=== PATIENT | female | born 1940 | race Caucasian/White ===

== ENCOUNTER 2018-05-02 08:37 | Inpatient (IN) ==
[2018-05-02] MEDS ORDERED: PEPCID IV ONE (09:53)
[2018-05-02] MEDS ORDERED: ZOFRAN IV ONE ×2 (09:53→12:01)
[2018-05-02] MEDS ORDERED: NS 500 ML IV ONE (09:53)
[2018-05-02] MEDS ORDERED: SODIUM CHLORIDE 0.9% INJ ONE (09:53)
[2018-05-02 10:13] LABS: BASO# 0.04 X1000 (0.0-0.2); BASO% 0.4 % (0.0-0.8); EOS# 0.07 X1000 (0.0-0.7); EOS% 0.7 % (0.0-10.0); HEMATOCRIT 37.4 % (37.0-47.0); HEMOGLOBIN 11.5 g/dL (12.0-16.0); LYMPH# 0.96 X1000 (1.2-3.4); LYMPH% 10.2 % (20.5-51.1); MCH 27.2 PG (27-31); MCHC 30.7 g/dL (33-37); MCV 88.4 FL (81-99); MONO# 0.42 X1000 (0.11-0.59); MONO% 4.5 % (1.7-9.3); MPV 9.4 FL (7.4-10.4); NEUT# 7.89 X1000 (1.4-6.5); NEUT% 84.2 % (42.2-75.2); PLT 291 X1000 (130-400); RBC 4.23 XMIL (4.2-5.4); RDW 13.5 % (11.5-14.5); WBC 9.38 X1000 (4.8-10.8)
[2018-05-02 10:33] LABS: ALBUMIN 3.9 g/dL (3.5-5.0); CALCIUM 10.1 mg/dL (8.8-10.2); CREATININE 0.9 mg/dL (0.5-0.9); POTASSIUM 3.1 mmol/L (3.5-5.1); TOTAL BILIRUBIN 0.83 mg/dL (0.20-1.00); TOTAL PROTEIN 7.9 g/dL (6.3-8.3)
--- NOTE | 2018-05-02 11:40 | Diag Imaging Result Doc PS360 ---
CHEST-PORTABLE - 05/02/2018 INDICATION: EPIGASTRIC TENDER COMPARISON: 09/29/2017 FINDINGS: There is worsening pulmonary vascular congestion. There is fine interstitial pulmonary edema with curly B lines. There is stable cardiomegaly. No pneumothorax or pleural effusion. IMPRESSION: Interstitial pulmonary edema. Electronically signed by Austyn Jaimes 05/02/2018 11:37 AM
[2018-05-02] MEDS ORDERED: POTASSIUM CHLORIDE 40 MEQ/SWI 40 MEQ/100 ML IVPB IV ONE (11:41)
--- NOTE | 2018-05-02 11:45 | Diag Imaging Result Doc PS360 ---
CT ABD/PELVIS W/IV CONT ONLY - 05/02/2018 INDICATION: EPIGASTRIC PAIN AND TENDERNESS COMPARISON: 09/02/2016 FINDINGS: There is some hazy interstitial infiltrate throughout the lung bases diffusely compatible with pulmonary edema. No significant pleural effusion. There is cardiomegaly and advanced coronary artery disease. There is also advanced dystrophic calcification of the mitral valve annulus which may indicate mitral valve disease. At the pre-existing small ventral hernia in the anterior pelvic body wall in the midline, there is now a loop of nonobstructed small bowel herniated out into the subcutaneous tissue. This causes moderately high-grade small bowel obstruction proximally, with severe collapse of distal small bowel. There is some stool throughout colon and rectum. No free air or free fluid. There is advanced vascular disease of the aorta and all of its branches including the superior mesenteric artery. 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 Stable cholecystectomy clips. Stable moderate, benign biliary dilation. Other abdominal organs are unchanged. Uterus is absent. Urinary bladder and rectum are normal. There are moderate degenerative changes of the spine. No acute or suspicious bony lesion. IMPRESSION: 1. There is new herniation of a small bowel loop through a small pre-existing ventral hernia at the anterior pelvic body wall in the midline. This causes severe small bowel obstruction. 2. Cardiomegaly. Interstitial pulmonary edema in the lung bases. 3. Severe vascular disease. 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 This exam was performed using automated exposure control, adjustment of mA or kV according to patient size, and/or use of iterative reconstruction technique Electronically signed by Austyn Jaimes 05/02/2018 11:43 AM
[2018-05-02 11:55] LABS: URINE SOURCE CLEAN CATCH
[2018-05-02 11:59] LABS: BILIRUBIN URINE NEGATIVE (NEGATIVE); BLOOD URINE SMALL (NEGATIVE); COLOR YELLOW; GLUCOSE URINE NEGATIVE (NEGATIVE); KETONE URINE NEGATIVE (NEGATIVE); LEUKOCYTES URINE MODERATE (NEGATIVE); NITRITE URINE POSITIVE (NEGATIVE); PH URINE 7.5; PROTEIN URINE 30 mg/dL (NEGATIVE); SP GRAVITY URINE 1.018; TURBIDITY URINE CLEAR (CLEAR); UR EPITHELIAL CELLS <10 /HPF (<10); URINE BACTERIA 4+ /HPF; URINE RBC 20-40 /HPF (<10); URINE WBC 20-40 /HPF (<10); UROBILINOGEN URINE NORMAL (NORMAL)
[2018-05-02] MEDS ORDERED: MORPHINE IV ONE (12:01)
--- NOTE | 2018-05-02 13:34 | Diag Imaging Result Doc PS360 ---
CHEST/ABD TUBE PLACEMENT - 05/02/2018 INDICATION: ng tube placement COMPARISON: 11:29 AM FINDINGS: There has been placement of a nasogastric tube in good position in the gastric fundus. IMPRESSION: Good nasogastric tube placement. Electronically signed by Austyn Jaimes 05/02/2018 1:32 PM
--- NOTE | 2018-05-02 13:35 | EKG Report ---
Test Performed on : 05/02/2018 08:57:16 AM Test Reason : ED. No order in [place] Blood Pressure : / mmHG Vent. Rate : 109 BPM Atrial Rate : 153 BPM P-R Int : 000 ms QRS Dur : 096 ms QT Int : 374 ms P-R-T Axes : 000 088 013 degrees QTc Int : 503 ms Atrial fibrillation. with rapid ventricular response. Nonspecific ST abnormality Abnormal ECG When compared with ECG of 04-OCT-2017 20:17, Previous ECG has undetermined rhythm, needs review Nonspecific T wave abnormality no longer evident in Lateral leads Unconfirmed Result
[2018-05-02] MEDS ORDERED: LOPRESSOR IV ONE (13:55)
[2018-05-02] MEDS ORDERED: ZOFRAN IV PRN (14:22)
[2018-05-02] MEDS ORDERED: MORPHINE IV PRN (14:22)
[2018-05-02] MEDS: NS + KCL 20 MEQ 1,000 ML IV SCH (16:34)
--- NOTE | 2018-05-02 18:39 | Diag Imaging Result Doc PS360 ---
EXAM: ABDOMEN FLAT/UPRIGHT - 05/02/2018 HISTORY: F/U SBO TECHNIQUE: Supine and upright abdomen COMPARISON: 05/02/2018 CT abdomen/pelvis FINDINGS: There is a nasogastric tube is tip at the proximal to mid stomach. There is gaseous distention of multiple small bowel loops. There has been some apparent decrease in small bowel distention compared to the prior CT, but exact comparison between the radiographs and CT is difficult, as several the small bowel loops on the CT were distended with fluid. There is no free air identified. There are multiple surgical clips at the right upper quadrant. IMPRESSION: Some apparent decrease in small bowel distention compared to prior CT. Electronically signed by Kale Andrade 05/02/2018 6:37 PM
--- NOTE | 2018-05-02 18:42 | HISTORY AND PHYSICAL ---
CHIEF COMPLAINT: Vomiting and abdominal pain. HISTORY OF PRESENT ILLNESS: Ms. Coleman is an 78-year-old white female with a history of moderately severe Alzheimer disease, chronic constipation, venous hypertension with a history of bilateral lower extremity ulcerations and chronic atrial fibrillation. She was brought by her family in an ambulance to the emergency room for further evaluation after she began having persistent vomiting at home. She had a good day yesterday and went to bed feeling well. Around 4 a.m. she woke up this morning vomiting. She vomited at least 4 times prior to arrival and several times since. Her vomitus is yellowish-green bile without red blood or coffee grounds. In the emergency room she had a fairly unremarkable chest x-ray and an abdominal- pelvis CT that showed an infraumbilical midline herniation with a loop that was obstructed, herniated into the subcutaneous tissue. Proximally she had dilated, fluid-filled loops of bowel, and distally the collapse of the distal small bowel. There was no free air or fluid. 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 She has been examined by Dr. Franklin, general surgeon, and her hernia seems fairly reduced now, and her NG tube is functioning, and his plan is to observe her with IV fluids and NG suction overnight, and hopefully tomorrow her obstruction will be much improved. PAST MEDICAL HISTORY: As above, significant Alzheimer dementia, chronic atrial fibrillation on Xarelto, and she is extremely hard of hearing. ALLERGIES: She is allergic to sulfa drugs and Augmentin. HOME MEDICATIONS: MiraLAX and Benefiber daily, Cardizem CD 120 mg at bedtime, KCl 8 mEq daily, amlodipine 5 mg daily, Atenolol 25 mg in the morning and 50 mg at bedtime, furosemide 40 mg twice a day, and nitroglycerin sublingual p.r.n. PAST SURGICAL HISTORY: Positive for cholecystectomy years ago and a total abdominal hysterectomy with bilateral salpingo-oophorectomy. REVIEW OF SYSTEMS: GENERAL: No headache, fever, chills, night sweats, or weight loss. HEENT: Hard of hearing with hearing aids. Otherwise, no difficulty swallowing. RESPIRATORY: No shortness of breath, cough or wheezing. CARDIOVASCULAR: No recent chest pain, orthopnea or PND. She does have a history of ischemic heart disease. Her prescription eyeglass maker has been Dr. Lowery in [place]. GI: Other than chronic constipation, no significant history with no previous hepatitis or peptic ulcer disease. : No dysuria or increased frequency of urination. No history of hematuria or renal stones. PHYSICAL EXAMINATION: VITAL SIGNS: Temperature is 98.3, blood pressure 165/85, pulse 105 and irregular, respiratory rate 18, O2 saturation 97% on room air. GENERAL APPEARANCE: Alert, cooperative, [id number] elderly woman. HEENT: Conjunctivae are white. Extraocular movements are intact. Her pupils are equal and reactive . NECK: Supple with no JVD, thyromegaly or bruits. CARDIAC: There is an irregularly irregular rhythm with apical rate of 104. S1 is variable. S2 is unremarkable. There is a loud grade 4/6 blowing systolic murmur from the apex towards the axilla. RESPIRATORY: Lungs are clear without crackles or wheezes. ABDOMEN: Soft with absent bowel sounds. There is no apparent tenderness. I do feel an infraumbilical ventral hernia which is fairly easy to reduce. EXTREMITIES: Trace ankle edema with thin, fragile skin over the shins and moderate stasis dermatitis. There is senile purpura along the extensor surfaces of both forearms. NEUROLOGIC: Cranial nerves are grossly intact. There is no focal deficit. Gait is not tested. Memory is quite limited. ASSESSMENT: 1. Acute small bowel obstruction due to a herniated loop of small bowel which seems to be reduced now. She still has an ileus, and I agree with Dr. Franklin that we can delay surgery but follow her with serial abdominal exams and get an x-ray in the morning. Hopefully surgical intervention can be avoided in this chronically ill elderly woman with significant dementia. 2. White blood cells in the urine. Urine culture is pending. 3. Alzheimer dementia. 4. Chronic atrial fibrillation with borderline rapid ventricular response. Will give IV Lopressor every 6 hours, hold for heart rate less than 60. 5. Deep venous thrombosis prophylaxis. Will begin Lovenox. 6. mitral regurgitation Plan: general surgical consultation, serial exams. cc: Alen Black MD [facility]
[2018-05-02] MEDS: LOVENOX SUBQ SCH (19:32)
[2018-05-02] MEDS: LOPRESSOR IV SCH (19:32)
--- NOTE | 2018-05-02 19:36 | CONSULTATION ---
DATE OF CONSULTATION: 05/02/2018 HISTORY OF PRESENT ILLNESS: Ms. Susan Coleman is an 78-year-old white female patient of Dr. Alen Black, who presented to the emergency department with abdominal pain, nausea and vomiting. A CT scan was performed which suggested a strangulated periumbilical ventral hernia, and we were asked to evaluate her. PAST MEDICAL HISTORY: Dementia, atrial fibrillation, hard of hearing. ALLERGIES: Sulfa drugs and Augmentin. HOME MEDICATIONS: 1. She is on Xarelto. 2. Cardizem. 3. Atenolol. 4. Amlodipine. 5. Furosemide. 6. Nitroglycerin. 7. MiraLAX. PAST SURGICAL HISTORY: Open cholecystectomy, total abdominal hysterectomy. REVIEW OF SYSTEMS: Noncontributory. FAMILY HISTORY: Noncontributory. PHYSICAL EXAMINATION: On exam, Ms. Coleman is hard of hearing but she is awake, cooperative, does not appear to be any acute distress. She has an NG tube in place. She had no jaundice. No oral lesions. No cervical or supraclavicular lymphadenopathy. Her heart has an irregular rate. Lungs were clear. Her abdomen was soft. I could not palpate a strangulated hernia. I think she has a periumbilical hernia but it seems to be reduced at this time. She has a well-healed right upper quadrant incision. She had no costovertebral tenderness. Rectal exam was not performed. She does have palpable femoral pulses. She had mild peripheral edema. Neurologically she had no focal deficit. IMPRESSION: The patient has a small-bowel obstruction with a strangulated, what I think is a periumbilical hernia which is now reduced, with nasogastric tube suction and NPO, intravenous fluids. PLAN: We will continue NG suction during the night and IV fluids. She is on Xarelto. We will try to resolve this without surgery, but if it becomes a frequent issue I can repair it surgically, by probably a laparoscopic approach. cc: MD Alen Patino MD
[2018-05-03] MEDS: LOPRESSOR IV SCH ×5 (00:09→23:27)
[2018-05-03] MEDS: NS + KCL 20 MEQ 1,000 ML IV SCH ×3 (02:13→23:26)
[2018-05-03] MEDS ORDERED: SODIUM CHLORIDE 0.9% INJ SCH (08:30)
--- NOTE | 2018-05-03 08:46 | Diag Imaging Result Doc PS360 ---
ABDOMEN FLAT/UPRIGHT - 05/03/2018 INDICATION: pain COMPARISON: 05/02/2018 FINDINGS: There has been improvement in the multiple gas-distended loops of small bowel. There are still a couple of slightly, abnormally gas-distended loops of small bowel mainly in the left mid abdomen. These measure up to 3.3 cm. No free air or significant fecal impaction. Stable nasogastric tube in good position in the stomach. IMPRESSION: Improvement in the abnormal small bowel gas pattern. Electronically signed by Austyn Jaimes 05/03/2018 8:44 AM
[2018-05-03 09:28] LABS: BASO# 0.05 X1000 (0.0-0.2); BASO% 0.5 % (0.0-0.8); EOS# 0.01 X1000 (0.0-0.7); EOS% 0.1 % (0.0-10.0); HEMATOCRIT 33.2 % (37.0-47.0); HEMOGLOBIN 9.9 g/dL (12.0-16.0); IMM GRAN# 0.02 X1000 (0.0-0.04); IMM GRAN% 0.2 % (0.0-0.5); LYMPH# 1.08 X1000 (1.2-3.4); LYMPH% 10.3 % (20.5-51.1); MCH 27.3 PG (27-31); MCHC 29.8 g/dL (33-37); MCV 91.7 FL (81-99); MONO% 10.5 % (1.7-9.3); MPV 9.4 FL (7.4-10.4); NEUT# 8.25 X1000 (1.4-6.5); NEUT% 78.4 % (42.2-75.2); PLT 253 X1000 (130-400); RBC 3.62 XMIL (4.2-5.4); WBC 10.51 X1000 (4.8-10.8)
[2018-05-03 09:58] LABS: CALCIUM 9.3 mg/dL (8.8-10.2); CREATININE 1.1 mg/dL (0.5-0.9); POTASSIUM 4.5 mmol/L (3.5-5.1)
--- NOTE | 2018-05-03 12:48 | PROVIDER DOCUMENTATION ---
This chart was entered by Sofia Franklin Scribe, acting as scribe for Jairon Arzate MD. HPI-Abdominal Pain/GI Problem - General Chief Complaint: Nausea/Vomiting Stated Complaint: general adult Time Seen by Provider: 05/02/18 09:01 Source: patient, family () Allergies/Adverse Reactions: Patient Allergies Allergy/AdvReac Type Severity Reaction Status Date / Time No Known Allergies Allergy Verified 05/02/18 09:02 Home Medications: Home Medication List Medication Instructions Recorded Confirmed Last Taken Type Risperidone [Risperdal] 0.5 mg PO QHS tablet 10/05/17 12/22/17 Unknown Rx Atenolol [Tenormin] 25 mg PO TID 12/22/17 12/22/17 Unknown History Celecoxib [Celebrex] 100 mg PO DAILY 12/22/17 12/22/17 Unknown History Diltiazem HCl [Cartia Xt] 120 mg PO DAILY 12/22/17 12/22/17 Unknown History Furosemide 40 mg PO BID 12/22/17 12/22/17 Unknown History Hydrocodone Bit/Acetaminophen 1 each PO Q4H PRN PRN 12/22/17 12/22/17 Unknown History [Hydrocodon-Acetaminoph 7.5-325] Lorazepam 0.5 mg PO QPM PRN PRN 12/22/17 12/22/17 Unknown History Losartan/Hydrochlorothiazide 1 each PO DAILY 12/22/17 12/22/17 Unknown History [Losartan-Hctz 100-25 mg Tab] Melatonin 3 mg SL PRN PRN 12/22/17 12/22/17 Unknown History Nitroglycerin [Nitrostat] 0.4 mg SL PRN PRN 12/22/17 12/22/17 Unknown History Potassium Chloride 10 meq PO DAILY 12/22/17 12/22/17 Unknown History Rivaroxaban [Xarelto] 15 mg PO Q12H 21 Days #41 tab 12/22/17 Unknown Rx Rivaroxaban [Xarelto] 20 mg PO DAILY #9 tab 12/22/17 Unknown Rx Rivastigmine [Exelon 4.6MG/24Hrs] 9.5 mg TD DAILY 12/22/17 12/22/17 Unknown History Tramadol [Ultram] 50 mg PO Q6H PRN PRN 12/22/17 12/22/17 Unknown History - History of Present Illness-ABD Nature of Presenting Problems: 78 yof presents t the ed with c/o epigastric pain with n/v. pt c/o of "knot" in her abdomen for months but on exam none was felt or seen. pt sts n/v onset at 0300am this morning Abdominal Pain Onset Location: reports: epigastric Pain Radiation: reports: no radiation Quality of Pain: reports: cramping Severity in ED: reports: moderate Onset/Duration: reports: this morning (0300am) Timing: reports: still present Activities at Onset: reports: sleep Exposure to sick contacts?: No Modifying Factors: improves with: nothing Associated Symptoms: reports: nausea, vomiting. denies: back/neck pain, chest pain, diarrhea, headaches, heartburn, shortness of breath Last BM: last night Dark Stools Present?: reports: none noticed Rectal Bleeding: reports: none # of Diarrhea Episodes: 0 Rectal Pain: reports: none # of Vomiting Episodes: 3 Emesis Description: reports: other (yellow) Bruising or Bleeding Gums?: No Similar Symptoms Previously?: Yes ("knot" for months ) Recently seen or treated by another doctor?: No Review of Systems - Adult - REVIEW OF SYSTEMS - ADULT Constitutional: denies: chills, fever Eyes: reports: no symptoms reported Ears, Nose, Mouth & Throat: reports: no symptoms reported Cardiovascular: denies: chest pain, orthopnea Respiratory: denies: cough, shortness of breath, wheezing Gastrointestinal: reports: abdominal pain (epigastric), nausea, vomiting. denies: diarrhea Genitourinary: reports: no symptoms reported Musculoskeletal: denies: back pain, neck pain Integumentary: reports: no symptoms reported Neurological: denies: dizziness/vertigo, headache/migraines, syncope, tremors Psychiatric: reports: no symptoms reported Endocrine: reports: no symptoms reported Hematologic/Lymphatic: reports: no symptoms reported Allergic/Immunologic: reports: no symptoms reported All Other Systems: Reviewed and Negative Past History - Adult - PAST MEDICAL HISTORY-ADULT Review of Records: reports: Old Records Reviewed, Nursing Assessment Review, Medications Reviewed, Social history reviewed & non-contributory. Major Childhood Illnesses: reports: denies history Cardiovascular: reports: A-Fib, CAD, HTN, hyperlipidemia Respiratory: reports: denies history Gastrointestinal: reports: GERD Obstetrical/Gynecological: reports: denies history Genitourinary: reports: denies history Musculoskeletal: reports: arthritis, chronic pain Hand Dominance: Right Handed Neurological: reports: dementia Psychiatric: reports: denies history Endocrine/Immune: reports: denies history Other Conditions: reports: denies history - PRIOR SURGERIES/PROCEDURES Surgical/Procedure History: reports: cholecystectomy, hysterectomy, BTL - PRIOR HOSPITALIZATIONS Prior Hospitalizations: reports: for other non-related - IMMUNIZATION STATUS Childhood Immunizations: See Nurse Assessment Flu Vaccine: See Nurse Assessment - FAMILY HISTORY Family History: reviewed, not pertinent - SOCIAL HISTORY Smoking: denies Substance Use: denies Living Situation: family Physical Exam-General - PHYSICAL EXAM-ADULT Exam Limited by: pt is hard of hearing with dementia Initial Vital Signs Reviewed: Yes - CONSTITUTIONAL General Appearance: alert, moderate distress - EYES Eyes: PERRL/EOMI, pink conjunctivae - HEAD, EARS, NOSE, MOUTH & THROAT HENMT: normocephalic/atraumatic, moist mucous membranes - NECK Neck: full range of motion, normal inspection - RESPIRATORY Respiratory: chest non-tender, lungs clear, normal breath sounds - CARDIOVASCULAR Cardiovascular: tachycardia (117), irregularly irregular - GASTROINTESTINAL (ABDOMEN) Abdominal Exam: soft, abnormal bowel sounds (decreased), tenderness. negative: mass - LYMPHATIC Lymphatic: no adenopathy - MUSCULOSKELETAL Back Exam: normal inspection Extremity: normal range of motion, non-tender, normal inspection - SKIN Integumentary: normal turgor, warm/dry, pallor - NEUROLOGIC Neurologic: grossly normal (per baseline with dementia) - PSYCHIATRIC Psych/Mental Status: other (dementia at baseline) Progress - PLAN OF CARE/RESULTS Progress/Plan/Lab Results: Vital Signs - 8 hr 05/02/18 08:56 Temperature 98.3 F Pulse Rate 117 H Respiratory Rate 20 Blood Pressure 168/106 O2 Sat by Pulse Oximetry 98 Orders Category Date Time Status CHEST-PORTABLE [RAD] Stat Exams 05/02/18 09:[address] ABD/PELVIS W/IV CONT ONLY [CT] Stat Exams 05/02/18 09:49 Ordered AMYLASE [CHEM] Stat Lab 05/02/18 09:45 Ordered CBC WITH ELECTRONIC DIFF [HEME] Stat Lab 05/02/18 09:45 Ordered COMPREHENSIVE METABOLIC PANEL [CHEM] Stat Lab 05/02/18 09:[address] Stat Lab 05/02/18 09:52 Uncollected LACTATE, PLASMA [CHEM] Stat Lab 05/02/18 09:52 Uncollected LIPASE [CHEM] Stat Lab 05/02/18 09:45 Ordered MAGNESIUM [CHEM] Stat Lab 05/02/18 09:52 Ordered PRO B-NATRIURETIC PEPTIDE Stat Lab 05/02/18 09:45 Ordered TROPONIN T Stat Lab 05/02/18 09:45 Ordered URINALYSIS W/POSS RFLX CULT [URINALYSIS] Stat Lab 05/02/18 09:50 Uncollected 0.9% Sodium Chloride Inj [Ns] 500 ml Med 05/02/18 09:53 Active IV 999 mls/hr Famotidine [Pepcid] Med 05/02/18 09:53 Discontinued 20 mg IV NOW ONE Ondansetron [Zofran] Med 05/02/18 09:53 Discontinued 4 mg IV NOW ONE Sodium Chloride 0.9% Med 05/02/18 09:53 Discontinued 5 - 10 ml INJ NOW ONE Result Diagrams: 05/02/18 09:20 05/02/18 09:20 - REASSESSMENT Reassessment #1 Time Reassessed: 11:47 Status: unchanged Reassessment Comment: at bedside Reassessment #2 Time Reassessed: 12:02 Status: unchanged (STILL VOMITING, MODERATE PAIN. WILL ADD NG SUCTION, MS 4MG/ ZOFRAN 4 MORE . ADMIT AND CONSULT SURGERY DISCUSSED WITH DR BLACK.) - EKG 1 Time of EKG reading by physician:: 08:56 EKG Read and Signed by:: Jairon Arzate EKG Interpretation (*Must complete 3 of following elements*): Abnormal Rate: 100 Rhythm: afib [place]: normal QRS: normal IN Interval: normal ST Wave: normal - XRAY 1 XRAY: Bilateral XRAY Study: Chest Impression: See EMR Report (CHEST-PORTABLE - 05/02/2018 INDICATION: EPIGASTRIC TENDER COMPARISON: 09/29/2017 FINDINGS: There is worsening pulmonary vascular congestion. There is fine interstitial pulmonary edema with curly B lines. There is stable cardiomegaly. No pneumothorax or pleural effusion. IMPRESSION: Interstitial pulmonary edema. Electronically signed by Austyn Jaimes 05/02/2018 11:37 AM 05/02/18 1137 Interpreting Physician: Austyn Jaimes MD Dictated Date/Time: 05/02/18 1137 cc: Jairon Arzate MD; Alen Black MD) - CT/MRI 1 CT Study: Abdomen, Pelvis Impression: See EMR Report (CT ABD/PELVIS W/IV CONT ONLY - 05/02/2018 INDICATION: EPIGASTRIC PAIN AND TENDERNESS COMPARISON: 09/02/2016 FINDINGS: There is some hazy interstitial infiltrate throughout the lung bases diffusely compatible with pulmonary edema. No significant pleural effusion. There is cardiomegaly and advanced coronary artery disease. There is also advanced dystrophic calcification of the mitral valve annulus which may indicate mitral valve disease. At the pre-existing small ventral hernia in the anterior pelvic body wall in the midline, there is now a loop of nonobstructed small bowel herniated out into the subcutaneous tissue. This causes moderately high-grade small bowel obstruction proximally, with severe collapse of distal small bowel. There is some stool throughout colon and rectum. No free air or free fluid. There is advanced vascular disease of the aorta and all of its branches including the superior mesenteric artery. 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 Stable cholecystectomy clips. Stable moderate, benign biliary dilation. Other abdominal organs are unchanged. Uterus is absent. Urinary bladder and rectum are normal. There are moderate degenerative changes of the spine. No acute or suspicious bony lesion. IMPRESSION: 1. There is new herniation of a small bowel loop through a small pre-existing ventral hernia at the anterior pelvic body wall in the midline. This causes severe small bowel obstruction. 2. Cardiomegaly. Interstitial pulmonary edema in the lung bases. 3. Severe vascular disease. 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 This exam was performed using automated exposure control, adjustment of mA or kV according to patient size, and/or use of iterative reconstruction technique Electronically signed by Austyn Jaimes 05/02/2018 11:43 AM 05/02/18 1143 Interpreting Physician: Austyn Jaimes MD Dictated Date/Time: 05/02/18 1139 cc: Jairon Arzate MD; Alen Black MD) - CONSULTS/PCP/HOSPITALIST Notification #1 *Consult/PCP/Hospitalist*: dr black pcp Time Discussed: 11:53 Reason/Comments: SBO Consult Disposition: Admit #2 Consult: dr almanzar sx Time Discussed: 12:38 Reason/Comments: will consult Departure - Departure Date of Disposition Decision: 05/02/18 Time of Disposition Decision: 12:03 DIAGNOSIS: SBO (small bowel obstruction), Abdominal pain, Vomiting, Alzheimer's dementia, late onset, Hypokalemia Disposition: ADMITTED INPATIENT 09 Certified Medical Emergency: Emergent Condition: Stable Referrals and Follow-Ups: Alen Black MD [Primary Care Provider] - - Critical Care Note This patient required my direct & personal management of CC.: Yes Total Time (mins): 35 Critical Care Statement: This patient required my direct personal management to treat or rule out processes, the absence of which, could potentiallly result in sudden, clinically significant life or limb threatening deterioration. Attestation - Physician/ ANIKA Attestation Patient care was provided by Advanced Practice Provider:: No The physician spent face to face time with patient:: Yes Advanced Practice Provider documentation review:: Supervising physician onsite and consulted in the evaluation and care of this patient. The physician did have a face to face encounter with the patient. This chart was documented by the indicated scribe, (Sofia Franklin Scribe) and accurately reflects the services I performed and decisions made by me, Jairon Arzate MD, as attested by the provider's signature.
[2018-05-03] MEDS: PROTONIX IV SCH (13:27)
--- NOTE | 2018-05-03 19:17 | PROGRESS NOTE ---
DATE: 05/03/2018 This is the 2nd hospital day for Ms. Susan Coleman. She was admitted through the emergency department with what appeared to be a strangulated hernia just underneath her umbilicus by CT scan. She had nausea and vomiting. This hernia has reduced itself, and she seems to be in no distress. She is demented somewhat. We will remove her NG tube and begin clear liquids and advance her diet over the weekend and work to get her home. I discussed repair of the hernia. Her wants to see how much this bothers her prior to deciding on any hernia repair. cc: MD Alen Patino MD
[2018-05-03] MEDS: LOVENOX SUBQ SCH (19:52)
[2018-05-03] MEDS: TYLENOL PO PRN (19:52)
[2018-05-04] MEDS: LOPRESSOR IV SCH (06:22)
[2018-05-04] MEDS: NS + KCL 20 MEQ 1,000 ML IV SCH ×2 (06:23→10:09)
--- NOTE | 2018-05-04 07:24 | GENERAL SURGERY PROGRESS NOTE ---
DATE: 05/04/2018 SUBJECTIVE: The patient seems to be doing okay. She tolerated her clear liquid diet. Has had no bowel movement. Does not report any pain. Her is in the room and does not report any other issues. OBJECTIVE: VITAL SIGNS: The patient is currently afebrile and her vital signs are stable. GENERAL: No acute distress. HEENT: Normocephalic, atraumatic. Pupils equal, round and reactive to light. Mucous membranes are moist. Oropharynx benign. NECK: Supple. Trachea midline. CARDIOVASCULAR: Regular rate and rhythm. LUNGS: Grossly clear. ABDOMEN: Soft, nontender. Hernia has been reduced. EXTREMITIES: Moves all extremities. NEUROLOGICAL: Grossly intact. SKIN: No signs of jaundice. VASCULAR: All extremities perfused. LABORATORY DATA: None this morning as of yet. ASSESSMENT AND PLAN: 78-year-old female with reduced periumbilical hernia. Reduced periumbilical hernia: At this time, patient seems to be doing okay. We will advance her to a full liquid diet. We will see how she does. The family is hesitant to do any surgery. At this point, I do not see any immediate need to do anything urgently. We will continue to follow her. cc: MD Alen Vance MD
[2018-05-04] MEDS: PROTONIX IV SCH (10:09)
[2018-05-04] MEDS: TYLENOL PO PRN ×2 (10:26→18:44)
[2018-05-04] MEDS ORDERED: NS 1,000 ML IV SCH (13:00)
--- NOTE | 2018-05-04 14:23 | PROGRESS NOTE ---
DATE: 05/04/2018 SUBJECTIVE: Patient's chart was reviewed. In summary, patient was admitted on 05/02/2018 with intractable nausea and vomiting. CT scan of the abdomen and pelvis suggested a new herniation of a small bowel loop through a small preexisting ventral hernia at the anterior pelvic body wall in the midline. The patient was treated supportively with NG tube, IV fluids and pain medications. Dr. Franklin was consulted. Over the course of the last 24 hours, patient's overall condition has improved considerably. She notes decreasing abdominal discomfort. NG tube was removed yesterday morning. She denies nausea, vomiting, shortness of breath, or chest discomfort. She continues to have weakness, but this also is improving. She is tolerating a clear liquid diet. OBJECTIVE: T-max 98.4 degrees, heart rate 80 to 94, respirations 12 to 18, blood pressure 120 to 137 over 43 to 71.General: Well nourished, well developed, no acute distress. Cardiovascular: Regular rate and rhythm. No significant murmurs, rubs, or gallops. Pulmonary: Clear to auscultation bilaterally. Abdomen: Soft, nontender, nondistended. Positive bowel sounds. Extremities: Moves all extremities well. No significant clubbing, cyanosis, or edema. Dermatologic: Evaluation reveals no evidence of rash. LABORATORY DATA: None. ASSESSMENT AND PLAN: 1. Small bowel obstruction secondary to incarcerated hernia-as described above, patient was treated supportively. On examination, and clinically, it appears patient has resolved this incarceration. NG tube has been removed. The patient is currently tolerating a clear liquid diet. For now, we will continue our current plan. We will change patient's IV fluids to half- normal saline and discontinue potassium replacement. We will encourage patient up in chair for all meals. 2. Urinary tract infection-patient's initial urinalysis/urine culture ultimately grew E. coli. We will initiate Keflex therapy. We will follow this. 3. Profound weakness-this likely is secondary to chronic disease and an exacerbation with her acute small-bowel obstruction. We will encourage up in chair for all meals. We will plan to initiate physical therapy should patient not continue to develop improvement. 4. Hypokalemia-this was resolved as of yesterday. We will discontinue potassium replacement. 5. Disposition-at this point, patient continues to require [facility] care in a hospital setting. We will plan discharge home once appropriate. cc: MD Alen Allen MD
[2018-05-04] MEDS: TENORMIN PO SCH ×2 (14:24→17:46)
[2018-05-04] MEDS: KEFLEX PO SCH ×2 (14:24→23:51)
[2018-05-04] MEDS: 1/2 NS 1,000 ML IV SCH (14:44)
[2018-05-04] MEDS: LOVENOX SUBQ SCH (17:46)
[2018-05-05] MEDS ORDERED: CALMOSEPTINE OINTMENT TOP PRN (04:14)
[2018-05-05] MEDS: KEFLEX PO SCH ×3 (04:14→23:05)
--- NOTE | 2018-05-05 06:48 | GENERAL SURGERY PROGRESS NOTE ---
DATE: 05/05/2018 SUBJECTIVE: Patient is doing okay. Tolerated a full liquid diet. No major issues. OBJECTIVE: Vital Signs: The patient is currently afebrile. Her vital signs are stable. General Examination: No acute distress. HEENT: Normocephalic, atraumatic. Pupils equal, round, reactive to light. Mucous membranes moist. Oropharynx benign. Neck: Supple. Trachea midline. Cardiovascular: Regular rate and rhythm. Lungs: Grossly clear. Abdomen: Soft, nontender, nondistended. Extremities: Moves all extremities. Neurologic: Grossly intact. Skin: No signs of jaundice. Vascular: All extremities perfused. Laboratory: None this morning. ASSESSMENT AND PLAN: An 78-year-old female with a reduced hernia. Reduced hernia. At this time, the patient seems to be doing okay. I will advance her to a regular diet. From a surgical point of view, she is doing really well. Disposition to a assisted. May keep her for another day but we will monitor her. cc: MD Alen Vance MD
[2018-05-05 06:55] LABS: BASO# 0.07 X1000 (0.0-0.2); EOS# 0.47 X1000 (0.0-0.7); EOS% 6.4 % (0.0-10.0); HEMATOCRIT 31.8 % (37.0-47.0); HEMOGLOBIN 9.2 g/dL (12.0-16.0); LYMPH# 1.67 X1000 (1.2-3.4); LYMPH% 22.7 % (20.5-51.1); MCH 26.5 PG (27-31); MCHC 28.9 g/dL (33-37); MCV 91.6 FL (81-99); MONO# 0.74 X1000 (0.11-0.59); MONO% 10.1 % (1.7-9.3); MPV 9.6 FL (7.4-10.4); NEUT% 59.8 % (42.2-75.2); PLT 215 X1000 (130-400); RBC 3.47 XMIL (4.2-5.4); RDW 13.8 % (11.5-14.5); WBC 7.35 X1000 (4.8-10.8)
[2018-05-05 07:21] LABS: ALB/GLOB RATIO 0.9; ALBUMIN 2.8 g/dL (3.5-5.0); CALCIUM 8.9 mg/dL (8.8-10.2); CREATININE 0.9 mg/dL (0.5-0.9); POTASSIUM 4.1 mmol/L (3.5-5.1); TOTAL BILIRUBIN 0.71 mg/dL (0.20-1.00); TOTAL PROTEIN 5.9 g/dL (6.3-8.3)
[2018-05-05] MEDS: TENORMIN PO SCH ×3 (08:07→17:07)
[2018-05-05] MEDS: 1/2 NS 1,000 ML IV SCH ×2 (08:07→13:11)
[2018-05-05] MEDS: PROTONIX IV SCH (08:07)
--- NOTE | 2018-05-05 13:01 | PROGRESS NOTE ---
DATE: 05/05/2018 SUBJECTIVE: Upon my arrival this morning, patient was sitting upright in her bed. Overall, she stated she felt well. She denied significant abdominal discomfort, nausea, vomiting, fevers, and chills. Over the course of the last 24 hours, patient did have a bowel movement. She continues to pass flatus. This morning, she was seen by Dr. Fuller. She was advanced to a regular diet. Otherwise, patient does complain of being weak, but denies any focal symptoms. OBJECTIVE: Vital signs: T-max 98.1 degrees, heart rate 75-93, respirations 16-18, blood pressure 132 to 148 over 78 to 86. General: Well-nourished, well-developed, in no acute distress. Cardiovascular: Regular rate and rhythm. No significant murmurs, rubs, or gallops. Pulmonary: Clear to auscultation bilaterally. Abdomen: Soft, nontender, nondistended. Positive bowel sounds. Extremities: Moves all extremities well. No significant clubbing, cyanosis, or edema. Dermatologic: Evaluation reveals no evidence of rash. LABORATORY DATA: White blood cell count 7.35, hemoglobin 9.2, hematocrit 31.8, platelet count 215,000. Sodium 140, potassium 4.1, chloride 109, bicarbonate 23, BUN 16, creatinine 0.9, glucose 80, total bilirubin 0.71, total protein 5.9, albumin 2.8, alkaline phosphatase 57, AST 19, ALT 11. ASSESSMENT AND PLAN: 1. Small-bowel obstruction secondary to incarcerated hernia - Patient appears to have cleared this nonsurgically. I agree with advancing diet per Surgery recommendation. If patient is able to tolerate this, I anticipate she will be prepared for discharge in the a.m. As described above, she is passing flatus and had a bowel movement yesterday. 2. Urinary tract infection - Urinalysis grew Escherichia coli. Keflex therapy was initiated yesterday. Thus far, she has tolerated this well. 3. Hypokalemia - Potassium is stable with without replacement. 4. Profound weakness - This likely is a consequence of chronic disease exacerbated by acute small- bowel obstruction. I have encouraged the patient to eat all meals in a chair. If the patient is unable, we will initiate physical therapy in the a.m. and consider whether rehabilitation is appropriate. DISPOSITION: At this point, patient continues to require nursing home care in a hospital setting. I anticipate patient will be prepared for discharge in the a.m. cc: MD Alen Allen MD
[2018-05-05] MEDS: LOVENOX SUBQ SCH (17:08)
[2018-05-06 07:54] VITALS: BP 148/91
--- NOTE | 2018-05-06 07:58 | PROGRESS NOTE ---
DATE: 05/06/2018 Ms. Susan Coleman is an 78-year-old, white, female patient of Dr. Alen Black who was admitted with initially a strangulated periumbilical hernia that caused a small bowel obstruction. With NG suction, n.p.o., and IV fluids, this strangulated hernia reduced itself. Throughout the weekend, her diet has been advanced. Her abdomen remains soft and she had a bowel movement this morning. Her family is hesitant to proceed with any repair of this periumbilical hernia because of her age and her frailty. I think that is acceptable but if this hernia is symptomatic frequently, we certainly can repair it probably with a laparoscopic approach. cc: MD Alen Patino MD
[2018-05-06] MEDS: 1/2 NS 1,000 ML IV SCH (08:06)
[2018-05-06] MEDS ORDERED: NITROGLYCERIN SL PRN (09:10)
[2018-05-06] MEDS: TENORMIN PO SCH (10:06)
--- NOTE | 2018-05-06 10:51 | DISCHARGE SUMMARY ---
ADMISSION DATE: 05/02/2018 DISCHARGE DATE: 05/06/2018 FINAL DIAGNOSES: 1. Periumbilical hernia with small bowel obstruction. 2. Alzheimer's disease, moderately severe. 3. Chronic venous hypertension. 4. Chronic atrial fibrillation on anticoagulation. HISTORY OF PRESENT ILLNESS: Ms. Coleman is an 78-year-old woman who presented to the emergency room shorting after waking up around 4:00 a.m. with multiple episodes of vomiting yellowish-green bile. She was evaluated in the emergency room with a CT scan of the abdomen and pelvis that showed an infraumbilical midline herniation with a loop of bowel causing dilated bowel proximally and collapsed bowel distally. Her physical examination revealed an elderly woman with fairly unremarkable vital signs who was alert, hard of hearing, but otherwise cooperative. Lungs were clear. There was an irregularly irregular rhythm. Abdomen was soft with absent bowel sounds. There was no apparent tenderness. The umbilical hernia was fairly easily reduced. HOSPITAL COURSE: She was seen in consultation by Dr. Javier Franklin, general surgeon, who felt that she was somewhat high risk for surgical repair and that hopefully some NG suction and time would relieve her as her hernia was reduced. Followup x-rays documented steady improvement, and her diet and activities were advanced. At the time of discharge, she was walking to the bathroom and back with assistance and has been tolerating solid food for greater than 24 hours. She has had no further nausea or vomiting. Dr. Franklin recommended surgical repair if she has any further issues with this. He felt this could be accomplished laparoscopically. DISCHARGE MEDICATIONS: Acetaminophen 650 mg q.6 hours p.r.n. for pain or fever, atenolol 25 mg 3 times a day, cephalexin 500 mg q.12 hours for 5 additional days, Calmoseptine ointment topically as needed for rash, Cardizem CD 120 mg daily, Lasix 40 mg twice a day, nitroglycerin sublingual 0.4 mg p.r.n., potassium chloride ER 10 mEq daily, Xarelto 20 mg daily. She is to return to my office in 8 to 14 days for transition of care visit. cc: Alen Black MD
[2018-05-06] MEDS ORDERED: LASIX PO SCH (21:00)
[2018-05-07] MEDS ORDERED: KLOR-CON PO SCH (09:00)
[2018-05-07] MEDS ORDERED: CARDIZEM CD PO SCH (09:00)
[2018-05-07] MEDS ORDERED: XARELTO PO SCH (09:00)
== END 2018-05-06 10:44 | disposition home or self-care (01) | DRG 394 ==
LOC: SUPCPDRO → ED 08:37 → EDIPHOLD 12:53 → 4N 14:04
PROVIDERS: ADMIT Internal Medicine; ATTEND Internal Medicine
CPT/HCPCS: 71010; 71045; 74000; 74018; 74019; 74020; 74177; 80048; 80053; 81001; 82150; 82948; 83605; 83690; 83735; 83880; 84484; 85025; 87077; 87088; 87186; 87275; 87276; 87804; 93005; 94761; 96365; 96375; 96376; 99285; A9270; C9113; J1650; J2405; J3480; J7040; Q9967; S0028; S0164; XXXXX